=== PATIENT | female | born 1950 | race Caucasian/White ===

== ENCOUNTER 2018-05-13 15:05 | Inpatient (IN) ==
[2018-05-14] MEDS ORDERED: Mag Hydrox/Al Hydrox/Simeth 30 ML UDC PO PRN (21:11)
[2018-05-15] MEDS: *HR* Heparin 5,000 UNIT/ML VIAL SQ SCH ×2 (05:25→17:45)
[2018-05-15 05:36] LABS: Basophils % 0.3 %; Eosinophils # 0.1 K/mcL (0.0-0.6); Eosinophils % 1.2 %; Hematocrit 29.1 % (35.3-44.9); Hemoglobin 7.5 g/dL (11.5-15.4); Immature Granulocytes % 0.3 % (0-4); Lymphocytes # 1.3 K/mcL (0.6-4.6); Lymphocytes % 22.8 %; Mean Corpuscular HGB Conc 25.8 g/dL (31.6-35.5); Mean Corpuscular Hemoglobin 22.5 pg (28.0-33.3); Mean Corpuscular Volume 87.4 fL (83.0-100.0); Mean Platelet Volume 10.4 fL (9.4-12.4); Monocytes # 1.4 K/mcL (0.0-1.3); Monocytes % 24.2 %; Platelet Count 210 K/mcL (140-400); Red Blood Count 3.33 M/mcL (3.82-4.97); Red Cell Distribution Width 19.5 % (11.5-14.5); Segmented Neutrophils % 51.2 %
[2018-05-15 06:08] LABS: Anisocytosis 1+ (Not Present); Hypochromasia Present (Not Present); Microcytosis Present (Not Present); Platelet Estimate Normal (Normal)
[2018-05-15 06:22] LABS: Carbon Dioxide > 45 mEq/L (23-29)
[2018-05-15 06:24] LABS: Alanine Aminotransferase 21 Units/L (7-52); Albumin 3.7 g/dL (3.5-5.7); Albumin/Globulin Ratio 1.2 (1.1-2.2); Alkaline Phosphatase 61 Units/L (34-104); Aspartate Amino Transferase 21 Units/L (13-39); BUN/Creatinine Ratio 47 (6-26); Bilirubin,Total 0.8 mg/dL (0.3-1.0); Blood Urea Nitrogen 20 mg/dL (8-23); Calcium 9.4 mg/dL (8.6-10.3); Chloride 95 mEq/L (98-107); Globulin 3.1 g/dL (2.4-3.5); Glucose 104 mg/dL (70-105); Magnesium 2.1 mg/dL (1.6-2.6); Osmolality,Calculated 297 (280-300); Potassium 3.9 mEq/L (3.5-5.1); Total Protein 6.8 g/dL (6.4-8.9); eGFR For Non-African Americans > 60 (> 60)
[2018-05-15 06:28] LABS: Sodium 142 mEq/L (136-145)
[2018-05-15] MEDS: Psyllium 1 PACKET POWD.PACK PO SCH (09:16)
[2018-05-15] MEDS: Aspirin 81 MG TAB.CHEW PO SCH (09:16)
[2018-05-15] MEDS: Furosemide 40 MG TABLET PO SCH (09:17)
[2018-05-15] MEDS: Metoprolol XL (24 HR) Succ 25 MG TAB.ER.24H PO SCH (09:17)
--- NOTE | 2018-05-15 10:59 | Internal Med History&Physical ---
Addendum entered and electronically signed by Lopez Da Silva MD 05/15/18 12:46: I have personally performed a face to face evaluation on this patient. I have r eviewed and agree with the care plan. History and Exam by me shows: Patient had worsening CHF, went to another hospital and is now here for rehabilitation to gain strength. She denies sick: Specific weakness but states she is short of breath, weak "all over." She is apparently been compliant with CPAP. We discussed her anemia and she refuses transfusion or other therapy with exception of iron supplementation. She states that she has chronic iron deficiency this has not been diagnosed in terms of a source or reason why. Patient has no complaint of chest discomfort, dyspnea, orthopnea, breathing problems, palpitations, nausea or vomiting, constipation or diarrhea, other changes in bowel habits, heartburn, difficulty with urination, kidney problems or kidney stones, fevers chills or sweats, rash or itching, seizures, headache or lightheadedness, heat or cold intolerance, blood problems or anemia, or other new complaints, except as mentioned above. Review of systems is otherwise negative. Examination: (Except as mentioned above): General: In no apparent distress, alert and oriented 3. Head: Atraumatic and normocephalic. Eyes: Extraocular muscles are intact, pupils equal round and reactive to light and accommodation. Sclerae anicteric. Ears: External ears are normal to inspection and hearing is grossly normal. Nose: Patent without lesion noted. Mouth: No intraoral lesions seen. Dentition is unremarkable. Neck: Supple with trachea midline. There is no thyromegaly or adenopathy and carotids are 2+ without bruit heard. Respiratory: No use of accessory muscles. Lungs are clear throughout. Normal airflow. Cardiovascular: Irregularly irregular with rate controlled. Abdomen: Bowel sounds are normal. No hepatosplenomegaly masses or tenderness. Obese and therefore difficult to palpate deeply. Patient is examined upright in chair and this also limits exam. Extremities: No cyanosis clubbing, etc. However, she has 2+ edema which she states, "comes and goes." Neurological: A and O 3. Cranial nerves II through XII are intact. No focal deficits and no abnormal movements or postures. Skin: Warm and non-diaphoretic with no lesions noted. Breasts, pelvic and rectal: Not examined. We will check her iron studies and see about supplementation. We will watch her hemoglobin but for now, no transfusion per her wishes. She is in atrial fibrillation with chronic control. Will monitor heart rate and hope for optimized function. We will ask her to continue to use her BiPAP, as at home. Original Note: Date of Encounter: 05/15/18 Time of Encounter: 10:56 Assessment and Plan (1) Congestive heart failure Current visit: Yes Status: Chronic Patient was transferred to this facility for rehabilitation due to generalized weakness secondary to her CHF. Patient was recently admitted to [facility] course she was treated for exacerbation of CHF and cardiomyopathy. At time of admission patient's BNP was at 2084. Patient also showed slightly elevated troponins during her admission at [place]. Patient's most recent echocardiogram shows a EF of 35%. Patient currently appears relaxed and denies any dyspnea while at rest. Patient has been compliant with the use of BiPAP at night, which she uses at home. Lungs noted to have fine rales to posterior bases but otherwise are clear. Patient continues to have +2 pedal edema, which she states has been chronic. Patient states she continues to have dyspnea with minimal exertion. Patient estimates that she can walk approximately 15 feet before becoming short of breath. Patient endorses orthopnea. We will continue with daily weights. We will continue with current medications per cardiology. Physical therapy evaluation pending. Qualifiers: Heart failure type: combined systolic and diastolic Heart failure chronicity: acute on chronic Qualified Code(s): I50.43 - Acute on chronic combined systolic (congestive) and diastolic (congestive) heart failure (2) Coronary artery disease Current visit: Yes Status: Chronic No acute issues at this time. Patient did have elevated troponins during her previous admission and was evaluate by cardiology. Patient with chronic elevation in troponins, most likely secondary to adverse CHF exacerbation. Patient currently denies any palpitations or chest discomforts. We will continue on current management plan per cardiology. Qualifiers: Coronary Disease-Associated Artery/Lesion type: [place] artery [place] vs. transplanted heart: [place] heart Associated angina: without angina Qualified Code(s): I25.10 - Atherosclerotic heart disease of [place] coronary artery without angina pectoris (3) HTN (hypertension) Current visit: Yes Status: Chronic Vital signs are stable. We will continue with current medications. Qualifiers: Hypertension type: essential hypertension Qualified Code(s): I10 - Essential (primary) hypertension (4) Anemia Current visit: No Status: Chronic Patient with chronic anemia. This morning's hemoglobin showed a 7.5. Patient continues to have dyspnea on exertion. We will continue to evaluate patient's status for possible need of transfusion. We will repeat labs in the morning along with a anemia panel. Qualifiers: Anemia type: iron deficiency Iron deficiency anemia type: unspecified iron deficiency Qualified Code(s): D50.9 - Iron deficiency anemia, unspecified (5) Atrial fibrillation Current visit: Yes Status: Chronic No acute issues. Patient denies any chest discomforts or palpitations. Heart rate remains irregular with ventricular rate less than 100. Patient currently remains on heparin for anticoagulation coverage. Qualifiers: Atrial fibrillation type: paroxysmal Qualified Code(s): I48.0 - Paroxysmal atrial fibrillation Internal Medicine - H&P: HPI Chief complaint: CHF Admitted From: Hospital to Hospital Transfer Plans for Post Hospital Care: Home History of present illness: Ms. Chirinos is a 67 year old female, who was transferred to this facility for further rehabilitation due to generalized weakness secondary to her CHF. Patient was recently treated at [facility] for exacerbation of CHF. Patient was also diagnosed with cardiomyopathy per cardiology. Medical records show patient has had several admissions over the past year due to exacerbation of CHF. Patient currently states that she becomes dyspneic after ambulating only approximately 10-15 feet. Patient endorses orthopnea. Patient does state that she uses BiPAP at night as compliant with his use at home. Patient shows +2 pedal edema, which she states has been chronic. Patient denies any chest palpitations or discomforts. Patient with a history of CHF, cardiomyopathy, COPD, coronary artery disease, hypertension, DVT and atrial fibrillation Past Med Surg Social Fam HX - Past Medical History Medical history: arthritis, atrial fibrillation, CHF, COPD, DVT, GERD, hyperlipidemia, hypertension Additional medical history: endometriosis Psychiatric history: anxiety, depression - Past Surgical History Surgical History: herniorrhaphy, hysterectomy, orthopedic, other Additional surgical history: Tubal ligation. Shoulder sx. hernia repair x4 - Social History Smoking Status: Current every day smoker Packs per day: 1 Smokeless Tobacco Status: No Alcohol use: none Drug use: none - Family History Father Family Member Ethnicity: Non- Living Status: Hx Family Cardiac Disorders: Yes (CHF, [place], HTN) Hx Family Endocrine Disorder: Yes (DM) Mother Family Member Ethnicity: Non- Living Status: Hx Family Neurologic Disorders: Yes (Alzheimer's disease) Brother Family Member Ethnicity: Non- Living Status: Hx Family Cancer: Yes (pancreatic) Sister Family Member Ethnicity: Non- Living Status: Internal Medicine - H&P: Meds Albuterol Sulfate [Albuterol Inhaler] 2 puff IH Q4HR PRN #1 [email or web address] 03/25/18 [Rx] Aspirin 81 mg PO DAILY #30 tab.chew 03/25/18 [Rx] Atorvastatin [Lipitor] 10 mg PO DAILY #30 tablet 03/25/18 [Rx] Pantoprazole Sodium [Protonix] 40 mg PO DAILY #30 tablet.dr 03/25/18 [Rx] Psyllium Husk [Daily Fiber] 0.52 gm PO DAILY 05/03/18 [History] Citalopram Hydrobromide [Citalopram HBr] 20 mg PO DAILY 05/04/18 [History] Clopidogrel [Plavix] 75 mg PO DAILY 05/04/18 [History] Furosemide [Lasix] 40 mg PO DAILY 05/04/18 [History] Lisinopril 2.5 mg PO DAILY 05/04/18 [History] Metoprolol Succinate [Toprol Xl] 12.5 mg PO DAILY 05/04/18 [History] Docusate Sodium [Colace] 100 mg PO BID 05/14/18 [History] Ferrous Sulfate 325 mg PO DAILY@0800 30 Days #30 tablet 05/14/18 [Rx] Ipratropium/Albuterol Sulfate [Iprat-Albut 0.5-3(2.5) mg/3 ml] 3 ml IH QID PRN 05/14/18 [History] Allergy/AdvReac Type Severity Reaction Status Date / Time Neomycin Allergy Blister Verified 12/29/17 13:47 Penicillins Allergy Blister Verified 12/29/17 13:47 vancomycin Allergy Blister Verified 05/03/18 16:08 All Systems PM: A 10-system review of systems was performed and is negative for pertinent findings except as documented above in the HPI. - Constitutional Constitutional: no chills, no fever(s), no night sweats - EENT Eyes: as per HPI, no change in vision, no discharge, no pain, no photophobia Ears: no ear discharge, no ear pain, no tinnitus Nose, mouth and throat: as per HPI, no dysphagia, no nasal discharge, no neck pain, no sore throat - Cardiovascular Cardiovascular ROS IM: as per HPI, no chest pain, no diaphoresis, no dyspnea, no lightheadedness, no palpitations, no syncope - Respiratory Respiratory: as per HPI, no cough, no dyspnea, no wheezing, no excessive phlegm production - Gastrointestinal Gastrointestinal: as per HPI, no abdominal pain, no diarrhea, no hematemesis, no hematochezia, no melena, no nausea, no vomiting - Genitourinary Genitourinary: as per HPI, no change in urinary stream, no dysuria, no flank pain, no hematuria - Musculoskeletal Musculoskeletal ROS IM: as per HPI, no numbness, no tingling - Integumentary Integumentary IM: as per HPI, no rash, no unusual bruising - Neurological Neurological ROS: as per HPI, no confusion, no convulsions, no focal weakness, no numbness, no tingling, no tremor(s) - Hematologic/Lymphatic Hematologic/Lymphatic: no easy bruising - Constitutional Vitals: Temp Pulse Resp BP Pulse Ox 97.6 F 83 16 103/64 97 05/15/18 07:30 05/15/18 07:30 05/15/18 07:30 05/15/18 07:30 05/15/18 09:20 General appearance: Present: A&O X 3, pleasant - Head Head exam: Present: atraumatic, normocephalic - Eye Eye exam: Present: PERRL, conjuntiva pink, sclera anicteric Pupils: Present: PERRL - Neck Neck exam general surgery: Present: supple, trachea midline. Absent: lymphadenopathy - Respiratory Respiratory exam: Present: CTAB. Absent: accessory muscle use, rales, rhonchi, wheezes Additional comments: Lungs are clear throughout upper jain with noted findings scattered rales to posterior bases. Respiratory effort appears relaxed while at rest. No productive cough noted. - Cardiovascular Cardiovascular exam: Present: irregular rhythm, RRR, +S1, +S2. Absent: diastolic murmur, gallop, rubs, systolic murmur Additional comments: Patient's heart rate remains irregular with ventricular rate controlled less than 100 - GI/Abdominal GI/Abdominal exam: Present: normal bowel sounds, soft, no peritoneal signs. Absent: distended, tenderness - Extremities Exam Extremities exam: Present: pedal edema, warm, radial pulses palpable and symmetrical. Absent: calf tenderness, cyanotic Additional comments: Patient shows +2 pitting edema to bilateral lower extremities. - Neurological Exam Neurological exam: Present: CN II-XII intact, oriented X3, no focal deficits. Absent: pronater drift, facial droop, speech deficit - Skin Skin exam: Present: dry, intact Internal Med - H&P Results - Labs CBC & Chem 7: 05/15/18 04:10 05/15/18 04:10 Labs: Short CBC 05/15/18 Range/Units 04:10 WBC 5.8 (4.3-11.1) K/mcL Hgb 7.5 L (11.5-15.4) g/dL Hct 29.1 L (35.3-44.9) % Plt Count 210 (140-400) K/mcL Neutrophils # 3.0 (1.6-8.9) K/mcL BMP 05/15/18 04:10 Sodium 142 Potassium 3.9 Chloride 95 L Carbon Dioxide > 45 H* BUN 20 Creatinine 0.43 L Glucose 104 Calcium 9.4 Liver Function 05/15/18 Range/Units 04:10 Total Bilirubin 0.8 (0.3-1.0) mg/dL AST 21 (13-39) Units/L ALT 21 (7-52) Units/L Alkaline Phosphatase 61 (34-104) Units/L Albumin 3.7 (3.5-5.7) g/dL
[2018-05-15] MEDS: Acetaminophen 325 MG TABLET PO PRN (15:19)
[2018-05-16] MEDS: *HR* Heparin 5,000 UNIT/ML VIAL SQ SCH ×2 (05:48→19:30)
[2018-05-16 07:40] LABS: Basophils % 0.4 %; Eosinophils # 0.1 K/mcL (0.0-0.6); Eosinophils % 1.7 %; Hematocrit 29.4 % (35.3-44.9); Hemoglobin 7.8 g/dL (11.5-15.4); Immature Granulocytes % 0.2 % (0-4); Lymphocytes # 0.9 K/mcL (0.6-4.6); Lymphocytes % 16.9 %; Mean Corpuscular HGB Conc 26.5 g/dL (31.6-35.5); Mean Corpuscular Hemoglobin 23.1 pg (28.0-33.3); Mean Platelet Volume 10.2 fL (9.4-12.4); Monocytes # 1.2 K/mcL (0.0-1.3); Monocytes % 21.3 %; Neutrophils # 3.2 K/mcL (1.6-8.9); Platelet Count 220 K/mcL (140-400); Red Blood Count 3.38 M/mcL (3.82-4.97); Red Cell Distribution Width 20.2 % (11.5-14.5); Segmented Neutrophils % 59.5 %
[2018-05-16] MEDS: Metoprolol XL (24 HR) Succ 25 MG TAB.ER.24H PO SCH (07:55)
[2018-05-16] MEDS: Aspirin 81 MG TAB.CHEW PO SCH (08:05)
[2018-05-16] MEDS: Psyllium 1 PACKET POWD.PACK PO SCH (08:06)
[2018-05-16] MEDS: Furosemide 40 MG TABLET PO SCH (08:06)
[2018-05-16 13:10] LABS: % Iron Saturation 9 % (15-50); Iron 32 mcg/dL (50-170); Transferrin 262 mg/dL (203-362)
--- NOTE | 2018-05-16 13:28 | Internal Med Progress Note ---
Date of Encounter: 05/16/18 Time of Encounter: 13:26 - Assessment and plan (1) Congestive heart failure Current Visit: Yes Status: Chronic Assessment and plan: Clinically stable. We will continue to follow. Qualifiers: Heart failure type: combined systolic and diastolic Heart failure chronicity: acute on chronic Qualified Code(s): I50.43 - Acute on chronic combined systolic (congestive) and diastolic (congestive) heart failure (2) Coronary artery disease Current Visit: Yes Status: Chronic Assessment and plan: Currently, no signs or symptoms. Qualifiers: Coronary Disease-Associated Artery/Lesion type: [place] artery [place] vs. transplanted heart: [place] heart Associated angina: without angina Qualified Code(s): I25.10 - Atherosclerotic heart disease of [place] coronary artery without angina pectoris (3) COPD (chronic obstructive pulmonary disease) Current Visit: No Status: Chronic Assessment and plan: Clinically stable, on oxygen and supportive therapy. Qualifiers: COPD type: COPD with acute exacerbation Qualified Code(s): J44.1 - Chronic obstructive pulmonary disease with (acute) exacerbation (4) GERD (gastroesophageal reflux disease) Current Visit: No Status: Chronic Assessment and plan: Clinically stable on current regimen. Qualifiers: Esophagitis presence: esophagitis presence not specified Qualified Code(s): K21.9 - Gastro-esophageal reflux disease without esophagitis (5) Symptomatic anemia Current Visit: No Status: Acute Assessment and plan: Vitals are stable and patient refuses transfusion, as before. (6) HLD (hyperlipidemia) Current Visit: No Status: Chronic Assessment and plan: We will continue current regimen. Qualifiers: Hyperlipidemia type: unspecified Qualified Code(s): E78.5 - Hyperlipidemia, unspecified (7) HTN (hypertension) Current Visit: Yes Status: Chronic Assessment and plan: Clinically controlled. Qualifiers: Hypertension type: essential hypertension Qualified Code(s): I10 - Essential (primary) hypertension - Subjective Interval history: Patient is not as tired as yesterday and feels that her breathing is unchanged. She has no other acute issues. She moved her bowels earlier today. Patient has no complaint of chest discomfort, dyspnea, orthopnea, palpitations, nausea or vomiting, constipation or diarrhea, other changes in bowel habits, difficulty with urination, rash or itching, or other new complaints, except as mentioned above. Review of systems is otherwise negative. I discussed management of her care with nursing staff. - Constitutional Vitals: Temp Pulse Resp BP Pulse Ox 98.2 F 72 18 109/49 96 05/16/18 07:22 05/16/18 07:22 05/15/18 20:42 05/16/18 07:22 05/16/18 07:22 Exam: Examination: (Except as mentioned above): General: In no apparent distress. Alert and oriented 3. Nondiaphoretic. She is wearing oxygen at 2 L per nasal cannula. Head: Atraumatic and normocephalic. Respiratory: No use of accessory muscles. Lungs are clear throughout. Normal airflow. Cardiovascular: Regular rate and rhythm without murmur appreciated. Abdomen: Bowel sounds are normal. No hepatosplenomegaly mass or tenderness appreciated. Obese and therefore difficult to palpate deeply. Patient is exa mined upright in chair and this also limits exam. Extremities: No cyanosis clubbing or edema. Skin: Warm and non-diaphoretic with no new lesions noted. Internal Medicine: Result - Labs CBC & Chem 7: 05/16/18 07:20 05/15/18 04:10 Labs: Short CBC 05/16/18 Range/Units 07:20 WBC 5.4 (4.3-11.1) K/mcL Hgb 7.8 L (11.5-15.4) g/dL Hct 29.4 L (35.3-44.9) % Plt Count 220 (140-400) K/mcL Neutrophils # 3.2 (1.6-8.9) K/mcL Consult Discharge Plan - Plan Referrals: Jean Paul Heredia Jr, MD [Primary Care Provider] -
[2018-05-16] MEDS: Melatonin 3 MG TABLET PO PRN (22:31)
[2018-05-17] MEDS: *HR* Heparin 5,000 UNIT/ML VIAL SQ SCH ×2 (06:24→18:35)
[2018-05-17] MEDS: Aspirin 81 MG TAB.CHEW PO SCH (08:47)
[2018-05-17] MEDS: Furosemide 40 MG TABLET PO SCH (08:47)
[2018-05-17] MEDS: Metoprolol XL (24 HR) Succ 25 MG TAB.ER.24H PO SCH (08:48)
--- NOTE | 2018-05-17 17:32 | Internal Med Progress Note ---
Date of Encounter: 05/17/18 Time of Encounter: 15:10 - Assessment and plan (1) Congestive heart failure Current Visit: Yes Status: Chronic Assessment and plan: Clinically stable. No acute signs or symptoms but she does have persistent edema. Qualifiers: Heart failure type: combined systolic and diastolic Heart failure chronicity: acute on chronic Qualified Code(s): I50.43 - Acute on chronic combined systolic (congestive) and diastolic (congestive) heart failure (2) Coronary artery disease Current Visit: Yes Status: Chronic Assessment and plan: Clinically stable without acute signs or symptoms. Qualifiers: Coronary Disease-Associated Artery/Lesion type: [place] artery [place] vs. transplanted heart: [place] heart Associated angina: without angina Qualified Code(s): I25.10 - Atherosclerotic heart disease of [place] coronary artery without angina pectoris (3) COPD (chronic obstructive pulmonary disease) Current Visit: No Status: Chronic Assessment and plan: Clinically stable, on oxygen therapy. Qualifiers: COPD type: COPD with acute exacerbation Qualified Code(s): J44.1 - Chronic obstructive pulmonary disease with (acute) exacerbation (4) GERD (gastroesophageal reflux disease) Current Visit: No Status: Chronic Assessment and plan: No symptoms. Qualifiers: Esophagitis presence: esophagitis presence not specified Qualified Code(s): K21.9 - Gastro-esophageal reflux disease without esophagitis (5) Symptomatic anemia Current Visit: No Status: Acute Assessment and plan: Patient's iron is low. We will investigate IV iron infusion, tomorrow. (6) HLD (hyperlipidemia) Current Visit: No Status: Chronic Assessment and plan: We will continue current regimen. Qualifiers: Hyperlipidemia type: unspecified Qualified Code(s): E78.5 - Hyperlipidemia, unspecified (7) HTN (hypertension) Current Visit: Yes Status: Chronic Assessment and plan: Clinically controlled but will follow. Qualifiers: Hypertension type: essential hypertension Qualified Code(s): I10 - Essential (primary) hypertension - Subjective Interval history: Patient is feeling well today and has no complaints. She is moving her bowels without problem. She denies other complication. Patient has no complaint of chest discomfort, dyspnea, orthopnea, palpitations, nausea or vomiting, constipation or diarrhea, other changes in bowel habits, difficulty with urination, rash or itching, or other new complaints, except as mentioned above. Review of systems is otherwise negative. I discussed management of her care with nursing staff. - Constitutional Vitals: Temp Pulse Resp BP Pulse Ox 98.0 F 87 14 123/76 98 05/17/18 07:36 05/17/18 07:36 05/17/18 07:36 05/17/18 07:36 05/17/18 07:36 Exam: Examination: (Except as mentioned above): General: In no apparent distress. Alert and oriented 3. Nondiaphoretic. Head: Atraumatic and normocephalic. Respiratory: No use of accessory muscles. Lungs are clear throughout. Normal airflow. Cardiovascular: Regular rate and rhythm without murmur appreciated. Abdomen: Bowel sounds are normal. No hepatosplenomegaly mass or tenderness appreciated. Obese and therefore difficult to palpate deeply. Patient is examined upright in chair and this also limits exam. Extremities: No cyanosis clubbing or change in edema. This means that she still has bilateral 2+ ankle edema. Skin: Warm and non-diaphoretic with no new lesions noted. Internal Medicine: Result - Labs CBC & Chem 7: 05/16/18 07:20 05/15/18 04:10 Consult Discharge Plan - Plan Referrals: Jean Paul Heredia Jr, MD [Primary Care Provider] -
[2018-05-17] MEDS: Psyllium 1 PACKET POWD.PACK PO SCH (18:30)
[2018-05-17] MEDS: Ipratropium/Albuterol Neb 3 ML IH PRN (20:48)
[2018-05-18] MEDS: *HR* Heparin 5,000 UNIT/ML VIAL SQ SCH ×2 (06:17→18:29)
[2018-05-18] MEDS: Aspirin 81 MG TAB.CHEW PO SCH (07:26)
[2018-05-18] MEDS: Furosemide 40 MG TABLET PO SCH (07:26)
[2018-05-18] MEDS: Metoprolol XL (24 HR) Succ 25 MG TAB.ER.24H PO SCH (07:27)
[2018-05-18] MEDS: Psyllium 1 PACKET POWD.PACK PO SCH (07:30)
[2018-05-18] MEDS ORDERED: Psyllium 1 PACKET POWD.PACK PO PRN (10:32)
--- NOTE | 2018-05-18 11:06 | Internal Med Progress Note ---
Addendum entered and electronically signed by Lopez Da Silva MD 05/18/18 14:34: I have personally performed a face to face evaluation on this patient. I have r eviewed and agree with the care plan. History and Exam by me shows: Patient was noted to desaturate during therapy, 5 physical therapy. She is otherwise doing okay. She states that her breathing is no change and she is less fatigued than before. She denies acute issues. Discussed care with other providers and/or nursing. Patient has no complaint of chest discomfort, dyspnea, orthopnea, palpitations, nausea or vomiting, constipation or diarrhea, other changes in bowel habits, difficulty with urination, rash or itching, or other new complaints, except as mentioned above. Review of systems is otherwise negative. Examination: (Except as mentioned above): General: In no apparent distress. Alert and oriented 3. Nondiaphoretic. Head: Atraumatic and normocephalic. Respiratory: No use of accessory muscles. Lungs are clear throughout. Normal airflow. Cardiovascular: Regular rate and rhythm without murmur appreciated. Abdomen: Bowel sounds are normal. No hepatosplenomegaly mass or tenderness appreciated. Obese and therefore difficult to palpate deeply. Patient is examined upright in chair and this also limits exam. Extremities: No cyanosis clubbing or change in edema. This means she has bilateral 2+ lower calf and ankle edema. Skin: Warm and non-diaphoretic with no new lesions noted. Original Note: Date of Encounter: 05/18/18 Time of Encounter: 11:05 - Subjective Interval history: Sitting in chair, denies increased shortness of breath or chest pain. Denies nausea, vomiting or diarrhea. States she is having loose bowel movements. Will make MiraLAX PRN. Denies any other complaints at this time. Wears BiPAP at bedtime. - Constitutional Vitals: Temp Pulse Resp BP Pulse Ox 98.0 F 84 15 100/49 95 05/18/18 09:15 05/18/18 09:15 05/18/18 09:15 05/18/18 09:15 05/18/18 09:15 General appearance: Present: A&O X 3, pleasant, no acute distress, answers questions appropriately - Head Head exam: Present: atraumatic, normocephalic - Eye Eye exam: Present: PERRL, conjuntiva pink, sclera anicteric Pupils: Present: PERRL - Neck Neck exam general surgery: Present: supple, trachea midline. Absent: lymphadenopathy - Respiratory Respiratory exam: Present: CTAB. Absent: accessory muscle use, rales, rhonchi, wheezes Additional comments: Diminished and bilateral basis - Cardiovascular Cardiovascular exam: Present: irregular rhythm, +S1, +S2. Absent: diastolic murmur, gallop, rubs, systolic murmur - GI/Abdominal GI/Abdominal exam: Present: normal bowel sounds, soft, no peritoneal signs. Absent: distended, tenderness - Extremities Exam Extremities exam: Present: pedal edema, warm, radial pulses palpable and symmetrical. Absent: calf tenderness, cyanotic Additional comments: Trace nonpitting pedal edema. - Neurological Exam Neurological exam: Present: CN II-XII intact, oriented X3, no focal deficits. Absent: pronater drift, facial droop, speech deficit - Skin Skin exam: Present: dry, intact Internal Medicine: Result - Labs CBC & Chem 7: 05/16/18 07:20 05/15/18 04:10 Consult Discharge Plan - Plan Referrals: Jean Paul Heredia Jr, MD [Primary Care Provider] -
[2018-05-18 16:20] LABS: Basophils % 0.3 %; Eosinophils # 0.1 K/mcL (0.0-0.6); Eosinophils % 1.3 %; Immature Granulocytes % 0.6 % (0-4); Lymphocytes # 1.3 K/mcL (0.6-4.6); Lymphocytes % 17.8 %; Mean Corpuscular HGB Conc 26.7 g/dL (31.6-35.5); Mean Corpuscular Hemoglobin 23.5 pg (28.0-33.3); Mean Platelet Volume 10.5 fL (9.4-12.4); Monocytes # 1.2 K/mcL (0.0-1.3); Monocytes % 17.1 %; Neutrophils # 4.4 K/mcL (1.6-8.9); Platelet Count 271 K/mcL (140-400); Red Blood Count 3.41 M/mcL (3.82-4.97); Red Cell Distribution Width 21.9 % (11.5-14.5); Segmented Neutrophils % 62.9 %
[2018-05-18 16:46] LABS: Alanine Aminotransferase 23 Units/L (7-52); Albumin 3.8 g/dL (3.5-5.7); Albumin/Globulin Ratio 1.2 (1.1-2.2); Alkaline Phosphatase 82 Units/L (34-104); Aspartate Amino Transferase 22 Units/L (13-39); BUN/Creatinine Ratio 33 (6-26); Bilirubin,Total 0.6 mg/dL (0.3-1.0); Blood Urea Nitrogen 15 mg/dL (8-23); Calcium 9.1 mg/dL (8.6-10.3); Carbon Dioxide 41 mEq/L (23-29); Chloride 98 mEq/L (98-107); Globulin 3.1 g/dL (2.4-3.5); Glucose 103 mg/dL (70-105); Magnesium 1.9 mg/dL (1.6-2.6); Osmolality,Calculated 297 (280-300); Potassium 4.3 mEq/L (3.5-5.1); Sodium 143 mEq/L (136-145); Total Protein 6.9 g/dL (6.4-8.9); eGFR For Non-African Americans > 60 (> 60)
[2018-05-19] MEDS: *HR* Heparin 5,000 UNIT/ML VIAL SQ SCH ×2 (06:23→18:25)
--- NOTE | 2018-05-19 08:21 | Internal Med Progress Note ---
Addendum entered and electronically signed by Lopez Da Silva MD 05/19/18 14:07: I have personally performed a face to face evaluation on this patient. I have r eviewed and agree with the care plan. History and Exam by me shows: Patient is still fatigued but not any different than she has been for several days. Her breathing is limited by activity but is generally not changed. He has had no problems or other complaints. We discussed her Lasix dose and agreed to follow. She apparently has cardiology follow-up in about a week and half. Discussed care with other providers and/or nursing. Patient has no complaint of chest discomfort, dyspnea, orthopnea, palpitations, nausea or vomiting, constipation or diarrhea, other changes in bowel habits, difficulty with urination, rash or itching, or other new complaints, except as mentioned above. Review of systems is otherwise negative. Examination: (Except as mentioned above): General: In no apparent distress. Alert and oriented 3. Nondiaphoretic. Head: Atraumatic and normocephalic. Respiratory: No use of accessory muscles. Lungs are clear throughout. Normal airflow. Cardiovascular: Regular rate and rhythm without murmur appreciated. Abdomen: Bowel sounds are normal. No hepatosplenomegaly mass or tenderness appreciated. Obese and therefore difficult to palpate deeply. Patient is examined upright in chair and this also limits exam. Extremities: No cyanosis clubbing or change in edema. No cord or calf tenderness. Skin: Warm and non-diaphoretic with no new lesions noted. Original Note: Date of Encounter: 05/19/18 Time of Encounter: 08:17 - Assessment and plan (1) Congestive heart failure Current Visit: Yes Status: Chronic Assessment and plan: Controlled with current medication. Monitor for decompensation. Monitor labs. Qualifiers: Heart failure type: combined systolic and diastolic Heart failure chronicity: acute on chronic Qualified Code(s): I50.43 - Acute on chronic combined systolic (congestive) and diastolic (congestive) heart failure (2) Coronary artery disease Current Visit: Yes Status: Chronic Assessment and plan: Stable. Denies chest pain. Continue current medication. Qualifiers: Coronary Disease-Associated Artery/Lesion type: [place] artery [place] vs. transplanted heart: [place] heart Associated angina: without angina Qualified Code(s): I25.10 - Atherosclerotic heart disease of [place] coronary artery without angina pectoris (3) HTN (hypertension) Current Visit: Yes Status: Chronic Assessment and plan: Controlled with current medication. Monitor blood pressure. Qualifiers: Hypertension type: essential hypertension Qualified Code(s): I10 - Essential (primary) hypertension (4) COPD (chronic obstructive pulmonary disease) Current Visit: Yes Status: Chronic Assessment and plan: Continue oxygen per nasal cannula. Maintaining sets greater than 92% at 2 L per nasal cannula. Continue inhaled meds. Stable at this time. BiPAP at bedtime. Qualifiers: COPD type: COPD with acute exacerbation Qualified Code(s): J44.1 - Chronic obstructive pulmonary disease with (acute) exacerbation (5) Anemia Current Visit: Yes Status: Chronic Assessment and plan: Slightly improving hemoglobin 8.0. Monitor. Qualifiers: Anemia type: iron deficiency Iron deficiency anemia type: unspecified iron deficiency Qualified Code(s): D50.9 - Iron deficiency anemia, unspecified - Time Spent With Patient less than 15 minutes - Subjective Interval history: Sitting in chair, denies increased shortness of breath or chest pain. Denies nausea, vomiting or diarrhea. Denies any other complaints at this time. Wears BiPAP at bedtime. maintaining o2 sats >92% at 2 liters per NC - Constitutional Vitals: Temp Pulse Resp BP Pulse Ox 97.9 F 73 16 99/49 93 05/19/18 07:30 05/19/18 07:30 05/19/18 07:30 05/19/18 07:30 05/19/18 07:30 General appearance: Present: A&O X 3, pleasant, no acute distress, answers questions appropriately - Head Head exam: Present: atraumatic, normocephalic - Eye Eye exam: Present: PERRL, conjuntiva pink, sclera anicteric Pupils: Present: PERRL - Neck Neck exam general surgery: Present: supple, trachea midline. Absent: lymphadenopathy - Respiratory Respiratory exam: Present: CTAB. Absent: accessory muscle use, rales, rhonchi, wheezes Additional comments: diminished bilat bases. - Cardiovascular Cardiovascular exam: Present: RRR, +S1, +S2. Absent: diastolic murmur, gallop, rubs, systolic murmur - GI/Abdominal GI/Abdominal exam: Present: normal bowel sounds, soft, no peritoneal signs. Absent: distended, tenderness - Extremities Exam Extremities exam: Present: pedal edema, warm, radial pulses palpable and symmetrical. Absent: calf tenderness, cyanotic Additional comments: trace nonpitting bilat LE edema - Neurological Exam Neurological exam: Present: CN II-XII intact, oriented X3, no focal deficits. Absent: pronater drift, facial droop, speech deficit - Skin Skin exam: Present: dry, intact Internal Medicine: Result - Labs CBC & Chem 7: 05/18/18 16:06 05/18/18 16:06 Labs: Short CBC 05/18/18 Range/Units 16:06 WBC 7.0 (4.3-11.1) K/mcL Hgb 8.0 L (11.5-15.4) g/dL Hct 30.0 L (35.3-44.9) % Plt Count 271 (140-400) K/mcL Neutrophils # 4.4 (1.6-8.9) K/mcL BMP 05/18/18 16:06 Sodium 143 Potassium 4.3 Chloride 98 Carbon Dioxide 41 H* BUN 15 Creatinine 0.46 L Glucose 103 Calcium 9.1 Liver Function 05/18/18 Range/Units 16:06 Total Bilirubin 0.6 (0.3-1.0) mg/dL AST 22 (13-39) Units/L ALT 23 (7-52) Units/L Alkaline Phosphatase 82 (34-104) Units/L Albumin 3.8 (3.5-5.7) g/dL Consult Discharge Plan - Plan Referrals: Jean Paul Heredia Jr, MD [Primary Care Provider] -
[2018-05-19] MEDS: Metoprolol XL (24 HR) Succ 25 MG TAB.ER.24H PO SCH (08:38)
[2018-05-19] MEDS: Aspirin 81 MG TAB.CHEW PO SCH (08:44)
[2018-05-19] MEDS: Furosemide 40 MG TABLET PO SCH (08:45)
[2018-05-19] MEDS: Acetaminophen 325 MG TABLET PO PRN (11:42)
[2018-05-19] MEDS: Ipratropium/Albuterol Neb 3 ML IH PRN (19:19)
[2018-05-20] MEDS: Acetaminophen 325 MG TABLET PO PRN (01:10)
[2018-05-20] MEDS: *HR* Heparin 5,000 UNIT/ML VIAL SQ SCH ×2 (05:06→18:25)
[2018-05-20] MEDS: Furosemide 40 MG TABLET PO SCH (09:07)
[2018-05-20] MEDS: Metoprolol XL (24 HR) Succ 25 MG TAB.ER.24H PO SCH (09:07)
[2018-05-20] MEDS: Aspirin 81 MG TAB.CHEW PO SCH (09:10)
--- NOTE | 2018-05-20 09:41 | Internal Med Progress Note ---
Addendum entered and electronically signed by Lopez Da Silva MD 05/20/18 14:28: I have personally performed a face to face evaluation on this patient. I have r eviewed and agree with the care plan. History and Exam by me shows: Patient feels about the same. She states that her breathing is about the same. She feels like she is improving in terms of strength with therapy but not ready to go home yet. Bowels are moving well without diarrhea or constipation. Discussed care with other providers and/or nursing. Patient has no complaint of chest discomfort, dyspnea, orthopnea, palpitations, nausea or vomiting, constipation or diarrhea, other changes in bowel habits, difficulty with urination, rash or itching, or other new complaints, except as mentioned above. Review of systems is otherwise negative. Examination: (Except as mentioned above): General: In no apparent distress. Alert and oriented 3. Nondiaphoretic. Head: Atraumatic and normocephalic. Respiratory: No use of accessory muscles. Lungs are clear throughout. Normal airflow. Cardiovascular: Regular rate and rhythm without murmur appreciated. Abdomen: Bowel sounds are normal. No hepatosplenomegaly mass or tenderness appreciated. Morbidly obese and therefore difficult to palpate deeply. Extremities: No cyanosis clubbing or change in edema. This means that she has 2 + bilateral ankle edema without cord or calf tenderness. Skin: Warm and non-diaphoretic with no new lesions noted. Original Note: Date of Encounter: 05/20/18 Time of Encounter: 09:39 - Assessment and plan (1) Congestive heart failure Current Visit: Yes Status: Chronic Assessment and plan: No acute issues. Patient continues with diminished breath sounds to lower jain. Continued dyspnea with minimal exertion and orthopnea. We will continue with BiPAP at night. Patient noted to be slightly increased and her daily weights to 74 kg from 68. We will review patient's current medications. Qualifiers: Heart failure type: combined systolic and diastolic Heart failure chronicity: acute on chronic Qualified Code(s): I50.43 - Acute on chronic combined systolic (congestive) and diastolic (congestive) heart failure (2) Coronary artery disease Current Visit: Yes Status: Chronic Assessment and plan: No acute issues. Patient denies any chest palpitations or discomforts. We will continue with current medications. Qualifiers: Coronary Disease-Associated Artery/Lesion type: [place] artery [place] vs. transplanted heart: [place] heart Associated angina: without angina Qualified Code(s): I25.10 - Atherosclerotic heart disease of [place] coronary artery without angina pectoris (3) HTN (hypertension) Current Visit: Yes Status: Chronic Assessment and plan: Vital signs have remained stable, although her systolic has been somewhat low at 95-105. We will continue with current medications. Qualifiers: Hypertension type: essential hypertension Qualified Code(s): I10 - Essential (primary) hypertension (4) Anemia Current Visit: Yes Status: Chronic Assessment and plan: Patient continues with anemia although her hemoglobin has increased somewhat to 8.0. No current signs of active bleeding. We will continue to monitor with serial labs. Qualifiers: Anemia type: iron deficiency Iron deficiency anemia type: unspecified iron deficiency Qualified Code(s): D50.9 - Iron deficiency anemia, unspecified (5) Atrial fibrillation Current Visit: Yes Status: Chronic Assessment and plan: No acute issues. Patient's heart rate remains well controlled less than 100. Patient denies any chest palpitations or discomforts. We will continue with current medications. Qualifiers: Atrial fibrillation type: paroxysmal Qualified Code(s): I48.0 - Paroxysmal atrial fibrillation - Time Spent With Patient less than 15 minutes - Subjective Interval history: No acute issues. Patient currently denies any dyspnea or discomforts. Denies any productive cough or chest palpitations. Therapy reports patient continues become winded during exertion. Patient endorses orthopnea. Continued use of BiPAP at night. - Constitutional Vitals: Temp Pulse Resp BP Pulse Ox 97.8 F 89 18 93/62 95 05/20/18 06:38 05/20/18 06:38 05/20/18 06:38 05/20/18 06:38 05/20/18 09:11 General appearance: Present: A&O X 3, pleasant, no acute distress, answers questions appropriately - Head Head exam: Present: atraumatic, normocephalic - Eye Eye exam: Present: PERRL, conjuntiva pink, sclera anicteric Pupils: Present: PERRL - Neck Neck exam general surgery: Present: supple, trachea midline. Absent: lymphadenopathy - Respiratory Respiratory exam: Present: CTAB. Absent: accessory muscle use, rales, rhonchi, wheezes Additional comments: Lungs are clear throughout upper jain but diminished to lower half. Patient is obese with distant breath sounds to lower lung jain. No productive cough noted. Respiratory effort appears relaxed while at rest. - Cardiovascular Cardiovascular exam: Present: RRR, +S1, +S2. Absent: diastolic murmur, gallop, rubs, systolic murmur - GI/Abdominal GI/Abdominal exam: Present: normal bowel sounds, soft, no peritoneal signs. Absent: distended, tenderness - Extremities Exam Extremities exam: Present: pedal edema, warm, radial pulses palpable and symmetrical. Absent: calf tenderness, cyanotic Additional comments: Patient continues with +1 edema to bilateral lower legs. - Neurological Exam Neurological exam: Present: CN II-XII intact, oriented X3, no focal deficits. Absent: pronater drift, facial droop, speech deficit - Skin Skin exam: Present: dry, intact Internal Medicine: Result - Labs CBC & Chem 7: 05/18/18 16:06 05/18/18 16:06 Consult Discharge Plan - Plan Referrals: Jean Paul Heredia Jr, MD [Primary Care Provider] -
[2018-05-20] MEDS: Ipratropium/Albuterol Neb 3 ML IH PRN (19:54)
[2018-05-21] MEDS: *HR* Heparin 5,000 UNIT/ML VIAL SQ SCH ×2 (04:12→18:12)
[2018-05-21] MEDS: Ipratropium/Albuterol Neb 3 ML IH PRN ×2 (04:17→20:30)
[2018-05-21] MEDS: Metoprolol XL (24 HR) Succ 25 MG TAB.ER.24H PO SCH (08:46)
[2018-05-21] MEDS: Furosemide 40 MG TABLET PO SCH (08:46)
[2018-05-21] MEDS: Aspirin 81 MG TAB.CHEW PO SCH (08:47)
--- NOTE | 2018-05-21 10:32 | Internal Med Progress Note ---
Addendum entered and electronically signed by Lopez Da Silva MD 05/21/18 12:21: It should be noted that the patient was in atrial fibrillation as indicated by her irregularly irregular heartbeat with rate controlled. No murmur gallop or rub is heard. Addendum entered and electronically signed by Lopez Da Silva MD 05/21/18 12:17: I have personally performed a face to face evaluation on this patient. I have reviewed and agree with the care plan. History and Exam by me shows: Patient is without acute complaint. She did complain earlier of not putting him sleep. She did not use melatonin and has not been using it. She has had this prescribed since her arrival here. Nursing and I reinforced that she needed to use this on a regular basis and we would increase the dose of not effective for consider another medication. Bowels and bladder been functioning well and she denies change. She has not noticed any change in her breathing and states that his "as usual." She also has no increase in edema that she has noticed. Nursing had questioned whether her edema was increased. Discussed care with other providers and/or nursing. Patient has no complaint of chest discomfort, dyspnea, orthopnea, palpitations, nausea or vomiting, constipation or diarrhea, other changes in bowel habits, difficulty with urination, rash or itching, or other new complaints, except as mentioned above. Review of systems is otherwise negative. Examination: (Except as mentioned above): General: In no apparent distress. Alert and oriented 3. Nondiaphoretic. Head: Atraumatic and normocephalic. Respiratory: No use of accessory muscles. Lungs are clear throughout. Normal airflow. Cardiovascular: Regular rate and rhythm without murmur appreciated. Abdomen: Bowel sounds are normal. No hepatosplenomegaly mass or tenderness appreciated. Morbidly obese and therefore difficult to palpate deeply. Extremities: No cyanosis clubbing or change in edema. She still has 2+ bilateral lower calf and ankle and foot edema but this is the same as before. Skin: Warm and non-diaphoretic with no new lesions noted. Original Note: Date of Encounter: 05/21/18 Time of Encounter: 10:30 - Assessment and plan (1) Congestive heart failure Current Visit: Yes Status: Chronic Assessment and plan: No acute issues. Patient continues with diminished breath sounds to lower jain. Continued dyspnea with minimal exertion and orthopnea. We will continue with BiPAP at night. We will review patient's current medications. Qualifiers: Heart failure type: combined systolic and diastolic Heart failure chronicity: acute on chronic Qualified Code(s): I50.43 - Acute on chronic combined systolic (congestive) and diastolic (congestive) heart failure (2) Coronary artery disease Current Visit: Yes Status: Chronic Assessment and plan: No acute issues. Patient denies any chest palpitations or discomforts. We will continue with current medications. Qualifiers: Coronary Disease-Associated Artery/Lesion type: [place] artery [place] vs. transplanted heart: [place] heart Associated angina: without angina Qualified Code(s): I25.10 - Atherosclerotic heart disease of [place] coronary artery without angina pectoris (3) HTN (hypertension) Current Visit: Yes Status: Chronic Assessment and plan: Vital signs have remained stable, although her systolic has been somewhat low at 95-105. We will continue with current medications. Qualifiers: Hypertension type: essential hypertension Qualified Code(s): I10 - Essential (primary) hypertension (4) Anemia Current Visit: Yes Status: Chronic Assessment and plan: Patient continues with anemia although her hemoglobin with last level at 8.0. No current signs of active bleeding. We will continue to monitor with serial labs. Qualifiers: Anemia type: iron deficiency Iron deficiency anemia type: unspecified iron deficiency Qualified Code(s): D50.9 - Iron deficiency anemia, unspecified (5) Atrial fibrillation Current Visit: Yes Status: Chronic Assessment and plan: No acute issues. Patient's heart rate remains well controlled less than 100. Patient denies any chest palpitations or discomforts. We will continue with current medications. Qualifiers: Atrial fibrillation type: paroxysmal Qualified Code(s): I48.0 - Paroxysmal atrial fibrillation - Time Spent With Patient less than 15 minutes - Subjective Interval history: Patient with complaints of difficulty sleeping at night. Patient states that she has not been able to fall asleep or maintaining sleep over the past 2-3 nights.. Patient currently denies any dyspnea or discomforts. Denies any productive cough or chest palpitations. Therapy reports patient continues become winded during exertion. Patient endorses orthopnea. Continued use of BiPAP at night. - Constitutional Vitals: Temp Pulse Resp BP Pulse Ox 97.4 F L 95 16 103/64 97 05/21/18 07:11 05/21/18 07:11 05/21/18 07:11 05/21/18 07:11 05/21/18 07:11 General appearance: Present: A&O X 3, pleasant, no acute distress, answers questions appropriately - Head Head exam: Present: atraumatic, normocephalic - Eye Eye exam: Present: PERRL, conjuntiva pink, sclera anicteric Pupils: Present: PERRL - Neck Neck exam general surgery: Present: supple, trachea midline. Absent: lymphadenopathy - Respiratory Respiratory exam: Present: CTAB. Absent: accessory muscle use, rales, rhonchi, wheezes Additional comments: Lungs are clear throughout upper jain and diminished breath sounds throughout lower half. No productive cough noted. Respiratory effort appears relaxed. - Cardiovascular Cardiovascular exam: Present: irregular rhythm, RRR, +S1, +S2. Absent: diastolic murmur, gallop, rubs, systolic murmur Additional comments: Heart rate remains irregular but controlled ventricular rate less than 100 bpm - GI/Abdominal GI/Abdominal exam: Present: normal bowel sounds, soft, no peritoneal signs. Absent: distended, tenderness - Extremities Exam Extremities exam: Present: pedal edema, warm, radial pulses palpable and symmetrical. Absent: calf tenderness, cyanotic Additional comments: +1 pedal edema to bilateral lower legs - Neurological Exam Neurological exam: Present: CN II-XII intact, oriented X3, no focal deficits. Absent: pronater drift, facial droop, speech deficit - Skin Skin exam: Present: dry, intact Internal Medicine: Result - Labs CBC & Chem 7: 05/18/18 16:06 05/18/18 16:06 Consult Discharge Plan - Plan Referrals: Jean Paul Heredia Jr, MD [Primary Care Provider] -
[2018-05-21] MEDS ORDERED: Melatonin 3 MG TABLET PO PRN (10:54)
[2018-05-21] MEDS ORDERED: Neosporin OINT 15 GM TUBE TP SCH (22:45)
[2018-05-21] MEDS: Melatonin 3 MG TABLET PO PRN (23:19)
[2018-05-22] MEDS: Neosporin OINT 1 APPL PACKET TP SCH ×3 (04:56→19:27)
[2018-05-22] MEDS: *HR* Heparin 5,000 UNIT/ML VIAL SQ SCH ×2 (04:57→18:01)
[2018-05-22] MEDS: Metoprolol XL (24 HR) Succ 25 MG TAB.ER.24H PO SCH (09:25)
[2018-05-22] MEDS: Aspirin 81 MG TAB.CHEW PO SCH (09:25)
[2018-05-22] MEDS: Furosemide 40 MG TABLET PO SCH (09:48)
--- NOTE | 2018-05-22 12:22 | Internal Med Progress Note ---
Date of Encounter: 05/22/18 Time of Encounter: 12:20 - Assessment and plan (1) Congestive heart failure Current Visit: Yes Status: Chronic Assessment and plan: Clinically stable. No acute signs or symptoms but she does have persistent edema. We will not increase her diuretic as she is already showing signs of contraction alkalosis. Qualifiers: Heart failure type: combined systolic and diastolic Heart failure chronicity: acute on chronic Qualified Code(s): I50.43 - Acute on chronic combined systolic (congestive) and diastolic (congestive) heart failure (2) Coronary artery disease Current Visit: Yes Status: Chronic Assessment and plan: Clinically stable without acute signs or symptoms. Qualifiers: Coronary Disease-Associated Artery/Lesion type: [place] artery [place] vs. transplanted heart: [place] heart Associated angina: without angina Qualified Code(s): I25.10 - Atherosclerotic heart disease of [place] coronary artery without angina pectoris (3) COPD (chronic obstructive pulmonary disease) Current Visit: Yes Status: Chronic Assessment and plan: Clinically stable, on oxygen therapy. Her lungs sound quite good compared to he r initial examination. Qualifiers: COPD type: COPD with acute exacerbation Qualified Code(s): J44.1 - Chronic obstructive pulmonary disease with (acute) exacerbation (4) GERD (gastroesophageal reflux disease) Current Visit: No Status: Chronic Assessment and plan: No symptoms. Qualifiers: Esophagitis presence: esophagitis presence not specified Qualified Code(s): K21.9 - Gastro-esophageal reflux disease without esophagitis (5) Symptomatic anemia Current Visit: No Status: Acute Assessment and plan: Patient's iron is low. Will prescribe venofer and ask pharmacy to confirm dosing. (6) HLD (hyperlipidemia) Current Visit: No Status: Chronic Assessment and plan: We will continue current regimen. Qualifiers: Hyperlipidemia type: unspecified Qualified Code(s): E78.5 - Hyperlipidemia, unspecified (7) HTN (hypertension) Current Visit: Yes Status: Chronic Assessment and plan: Currently controlled. Qualifiers: Hypertension type: essential hypertension Qualified Code(s): I10 - Essenti al (primary) hypertension (8) Anterior epistaxis Current Visit: Yes Status: Acute Assessment and plan: This appears to be improved. We will ask that she continue on twice a day triple antibiotic ointment oxygen hydration as noted. - Subjective Interval history: Patient is without complaint. She has had nosebleeds, overnight. This is a small amount and seems to have been improved with the triple antibiotic ointment that we applied as well as hydration of her oxygen. Bowels and bladder are working well and she denies other complaints. Patient has no complaint of chest discomfort, dyspnea, orthopnea, palpitations, nausea or vomiting, constipation or diarrhea, other changes in bowel habits, difficulty with urination, rash or itching, or other new complaints, except as mentioned above. Review of systems is otherwise negative. I discussed management of her care with nursing staff. - Constitutional Vitals: Temp Pulse Resp BP Pulse Ox 97.6 F 67 14 114/67 95 05/22/18 08:34 05/22/18 08:34 05/22/18 08:34 05/22/18 08:34 05/22/18 08:34 Exam: Examination: (Except as mentioned above): General: In no apparent distress. Alert and oriented 3. Nondiaphoretic. Head: Atraumatic and normocephalic. Respiratory: No use of accessory muscles. Lungs are clear throughout. Normal airflow. Cardiovascular: Irregularly irregular with rate controlled. Abdomen: Bowel sounds are normal. No hepatosplenomegaly mass or tenderness appreciated. Morbidly obese and therefore difficult to palpate deeply. Patient is examined upright in chair and this also limits exam. Extremities: No cyanosis clubbing or change in edema. She has 1-2+ ankle edema bilaterally. Skin: Warm and non-diaphoretic with no new lesions noted. Internal Medicine: Result - Labs CBC & Chem 7: 05/18/18 16:06 05/18/18 16:06 Consult Discharge Plan - Plan Referrals: Jean Paul Heredia Jr, MD [Primary Care Provider] -
[2018-05-22] MEDS ORDERED: Iron Sucrose Complex 400 MG in 0.9 % Sodium Chloride 250 ML IVPB ONE (12:27)
[2018-05-22] MEDS: Ipratropium/Albuterol Neb 3 ML IH PRN (19:26)
[2018-05-22] MEDS: Melatonin 3 MG TABLET PO PRN (20:36)
--- NOTE | 2018-05-23 08:48 | Internal Med Progress Note ---
Date of Encounter: 05/23/18 Time of Encounter: 08:46 - Assessment and plan (1) Atrial fibrillation Current Visit: Yes Status: Chronic Assessment and plan: Todays exam shows regular pulse . stable rate continue to monitor Qualifiers: Atrial fibrillation type: paroxysmal Qualified Code(s): I48.0 - Paroxysmal atrial fibrillation (2) COPD (chronic obstructive pulmonary disease) Current Visit: Yes Status: Chronic Assessment and plan: Breathing base line . No acute issues noted to be PCO2 slightly high on lasix and CPAP Qualifiers: COPD type: COPD with acute exacerbation Qualified Code(s): J44.1 - Chronic obstructive pulmonary disease with (acute) exacerbation (3) Congestive heart failure Current Visit: Yes Status: Chronic Assessment and plan: On lasix , del etc BP is some what low today , ernestina recheck and give Lasix advised to to elevate feet while sitting in chair . Qualifiers: Heart failure type: combined systolic and diastolic Heart failure chronicity: acute on chronic Qualified Code(s): I50.43 - Acute on chronic combined systolic (congestive) and diastolic (congestive) heart failure (4) HTN (hypertension) Current Visit: Yes Status: Chronic Assessment and plan: She carried hx of HTN however her blood pressure is low today and is usally running on the lower side . On very small dose of DEL and Beta blockers , hold today due to low BP she is asymptomatic , making urine Repeat BP and give lasix as she has CHF followup . Qualifiers: Hypertension type: essential hypertension Qualified Code(s): I10 - Essential (primary) hypertension (5) Anemia Current Visit: Yes Status: Chronic Assessment and plan: last h/h 8 ON Iron IV will followup. stable at the present time . will follow Qualifiers: Anemia type: iron deficiency Iron deficiency anemia type: unspecified iron deficiency Qualified Code(s): D50.9 - Iron deficiency anemia, unspecified - Subjective Interval history: Cross coverage NO acute issues no dizziness sitting and eating ehr breakfast no SOB excpet when she lays flat in bed uses CPAP at night and seems to be tolerating it well . Noted BP systolic to be very low - Constitutional Vitals: Temp Pulse Resp BP Pulse Ox 98.3 F 72 14 87/55 100 05/23/18 07:41 05/23/18 07:41 05/23/18 07:41 05/23/18 07:41 05/23/18 07:41 General appearance: Present: A&O X 3, pleasant, no acute distress, answers questions appropriately - Head Head exam: Present: atraumatic - Eye Eye exam: Present: normal appearance, PERRL. Absent: scleral icterus Pupils: Present: PERRL - Neck Neck exam general surgery: Present: supple. Absent: tenderness, nuchal rigidity - Respiratory Respiratory exam: Present: decreased breath sounds, CTAB. Absent: rhonchi, stridor, wheezes, tachypnea - Cardiovascular Cardiovascular exam: Present: RRR, +S1, +S2 - GI/Abdominal GI/Abdominal exam: Present: normal bowel sounds, soft. Absent: guarding, rigid, no peritoneal signs - Extremities Exam Extremities exam: Present: pedal edema. Absent: mottling, tenderness, warm Additional comments: ++ pitting both sides - Neurological Exam Neurological exam: Present: alert, CN II-XII intact, oriented X3. Absent: no focal deficits, facial droop, speech deficit Internal Medicine: Result - Labs CBC & Chem 7: 05/18/18 16:06 05/18/18 16:06 Consult Discharge Plan - Plan Referrals: Jean Paul Heredia Jr, MD [Primary Care Provider] -
[2018-05-23] MEDS: *HR* Heparin 5,000 UNIT/ML VIAL SQ SCH (08:55)
[2018-05-23] MEDS: Aspirin 81 MG TAB.CHEW PO SCH (08:56)
[2018-05-23] MEDS: Neosporin OINT 1 APPL PACKET TP SCH ×2 (09:01→21:07)
[2018-05-23] MEDS: Furosemide 40 MG TABLET PO SCH ×2 (09:01→15:26)
[2018-05-23] MEDS: Metoprolol XL (24 HR) Succ 25 MG TAB.ER.24H PO SCH (09:01)
[2018-05-23] MEDS: Ipratropium/Albuterol Neb 3 ML IH PRN (10:09)
[2018-05-23] MEDS: Melatonin 3 MG TABLET PO PRN (21:06)
[2018-05-24] MEDS: *HR* Heparin 5,000 UNIT/ML VIAL SQ SCH ×2 (06:04→16:59)
--- NOTE | 2018-05-24 09:15 | Internal Med Progress Note ---
Date of Encounter: 05/24/18 Time of Encounter: 09:13 - Assessment and plan (1) Atrial fibrillation Current Visit: Yes Status: Chronic Assessment and plan: Stable rate continue to monitor Qualifiers: Atrial fibrillation type: paroxysmal Qualified Code(s): I48.0 - Paroxysmal atrial fibrillation (2) COPD (chronic obstructive pulmonary disease) Current Visit: Yes Status: Chronic Assessment and plan: Breathing base line . No acute issues noted to be PCO2 slightly high on lasix and CPAP stable Qualifiers: COPD type: COPD with acute exacerbation Qualified Code(s): J44.1 - Chronic obstructive pulmonary disease with (acute) exacerbation (3) Congestive heart failure Current Visit: Yes Status: Chronic Assessment and plan: stable at the present time due to her low BP other supportive meds can't be given and are at hold lasix only elevate legs . Qualifiers: Heart failure type: combined systolic and diastolic Heart failure chronicity: acute on chronic Qualified Code(s): I50.43 - Acute on chronic combined systolic (congestive) and diastolic (congestive) heart failure (4) HTN (hypertension) Current Visit: Yes Status: Chronic Assessment and plan: BP has been consistently running low other meds are at hold Lasix only as needed when BP is above 95 systolic Qualifiers: Hypertension type: essential hypertension Qualified Code(s): I10 - Essential (primary) hypertension (5) Anemia Current Visit: Yes Status: Chronic Assessment and plan: On iron stable but low Qualifiers: Anemia type: iron deficiency Iron deficiency anemia type: unspecified iron deficiency Qualified Code(s): D50.9 - Iron deficiency anemia, unspecified - Subjective Interval history: Cross coverage NO acute issues no dizziness sitting in chair no dizziness or any other complains - Constitutional Vitals: Temp Pulse Resp BP Pulse Ox 98.1 F 86 20 80/51 96 05/24/18 07:00 05/24/18 07:00 05/24/18 07:00 05/24/18 07:00 05/24/18 07:00 General appearance: Present: A&O X 3, pleasant, no acute distress, answers questions appropriately - Head Head exam: Present: atraumatic - Eye Eye exam: Present: EOMI, PERRL. Absent: scleral icterus Pupils: Present: PERRL - Neck Neck exam general surgery: Present: full ROM, supple. Absent: tenderness, nuchal rigidity - Respiratory Respiratory exam: Present: decreased breath sounds, CTAB. Absent: respiratory distress, rhonchi, stridor, wheezes, tachypnea Additional comments: both side decrease air entry otherwise stable - Cardiovascular Cardiovascular exam: Present: irregular rhythm, +S1, +S2. Absent: JVD, RRR Additional comments: rate stable - GI/Abdominal GI/Abdominal exam: Present: normal bowel sounds, soft. Absent: distended, g uarding, rigid, tenderness - Extremities Exam Extremities exam: Present: pedal edema Additional comments: + pitting both sides - Neurological Exam Neurological exam: Present: CN II-XII intact, oriented X3. Absent: no focal deficits, strengths equal and symetr throughout, pronater drift, facial droop Internal Medicine: Result - Labs CBC & Chem 7: 05/18/18 16:06 05/18/18 16:06 Consult Discharge Plan - Plan Referrals: Jean Paul Heredia Jr, MD [Primary Care Provider] -
[2018-05-24] MEDS: Metoprolol XL (24 HR) Succ 25 MG TAB.ER.24H PO SCH (09:59)
[2018-05-24] MEDS: Aspirin 81 MG TAB.CHEW PO SCH (10:05)
[2018-05-24] MEDS ORDERED: Furosemide 20 MG TABLET PO ONE (10:15)
[2018-05-24] MEDS: Neosporin OINT 1 APPL PACKET TP SCH ×2 (10:19→20:17)
[2018-05-24] MEDS: Furosemide 40 MG TABLET PO SCH ×2 (10:51→16:16)
[2018-05-24] MEDS: Melatonin 3 MG TABLET PO PRN (20:17)
[2018-05-25] MEDS: Acetaminophen 325 MG TABLET PO PRN ×2 (00:05→09:20)
[2018-05-25] MEDS: *HR* Heparin 5,000 UNIT/ML VIAL SQ SCH ×2 (06:21→19:02)
[2018-05-25] MEDS: Aspirin 81 MG TAB.CHEW PO SCH (09:19)
[2018-05-25] MEDS: Metoprolol XL (24 HR) Succ 25 MG TAB.ER.24H PO SCH (09:20)
[2018-05-25] MEDS: Furosemide 40 MG TABLET PO SCH ×2 (09:20→19:02)
[2018-05-25] MEDS: Neosporin OINT 1 APPL PACKET TP SCH ×2 (09:21→21:43)
--- NOTE | 2018-05-25 11:22 | Internal Med Progress Note ---
Addendum entered and electronically signed by Lopez Da Silva MD 05/25/18 11:57: I have personally performed a face to face evaluation on this patient. I have r eviewed and agree with the care plan. History and Exam by me shows: Patient is feeling stronger. She walked up to 150 feet in the hallway. She is still having some dyspnea but feels that she is making progress. She has no new pulmonary symptoms, chest discomfort, etc. Bowels and bladder are functioning well without problems. Social service tells me that she is being evaluated for custodial acceptability. Discussed care with other providers and/or nursing. Patient has no complaint of chest discomfort, dyspnea, orthopnea, palpitations, nausea or vomiting, constipation or diarrhea, other changes in bowel habits, difficulty with urination, rash or itching, or other new complaints, except as mentioned above. Review of systems is otherwise negative. Examination: (Except as mentioned above): General: In no apparent distress. Alert and oriented 3. Nondiaphoretic. Head: Atraumatic and normocephalic. Respiratory: No use of accessory muscles. Lungs are clear throughout. Normal airflow. Cardiovascular: Regular rate and rhythm without murmur appreciated. Abdomen: Bowel sounds are normal. No hepatosplenomegaly mass or tenderness appreciated. Morbidly obese and therefore difficult to palpate deeply. Patient is examined upright in chair and this also limits exam. Extremities: No cyanosis clubbing or change in edema. She has 2+ edema, persistent. Skin: Warm and non-diaphoretic with no new lesions noted. She continues to have borderline hypotension and we will follow. She is receiving iron daily for 2 more days and hopefully she will improve from the standpoint of hemoglobin and this might help her stamina as well as blood pressure. Original Note: Date of Encounter: 05/25/18 Time of Encounter: 11:20 - Assessment and plan (1) Congestive heart failure Current Visit: Yes Status: Chronic Assessment and plan: Controlled with current medication. Monitor for decompensation. Monitor labs. Qualifiers: Heart failure type: combined systolic and diastolic Heart failure chronicity: acute on chronic Qualified Code(s): I50.43 - Acute on chronic combined systolic (congestive) and diastolic (congestive) heart failure (2) Coronary artery disease Current Visit: Yes Status: Chronic Assessment and plan: Stable. Denies chest pain. Continue current medication. Qualifiers: Coronary Disease-Associated Artery/Lesion type: [place] artery [place] vs. transplanted heart: [place] heart Associated angina: without angina Qualified Code(s): I25.10 - Atherosclerotic heart disease of [place] coronary artery without angina pectoris (3) HTN (hypertension) Current Visit: Yes Status: Chronic Assessment and plan: Controlled with current medication. Monitor blood pressure. Qualifiers: Hypertension type: essential hypertension Qualified Code(s): I10 - Essential (primary) hypertension (4) COPD (chronic obstructive pulmonary disease) Current Visit: Yes Status: Chronic Assessment and plan: Continue oxygen per nasal cannula. Maintaining sets greater than 92% at 2 L per nasal cannula. Continue inhaled meds. Stable at this time. BiPAP at bedtime. Qualifiers: COPD type: COPD with acute exacerbation Qualified Code(s): J44.1 - Chronic obstructive pulmonary disease with (acute) exacerbation - Time Spent With Patient 25 - 35 minutes - Subjective Interval history: Sitting in chair, denies increased shortness of breath or chest pain. Denies nausea, vomiting or diarrhea. Denies any other complaints at this time. Wears BiPAP at bedtime. maintaining o2 sats >92% at 2 liters per NC - Constitutional Vitals: Temp Pulse Resp BP Pulse Ox 97.7 F 89 16 99/65 100 05/25/18 06:50 05/25/18 06:50 05/25/18 06:50 05/25/18 06:50 05/25/18 06:50 General appearance: Present: cooperative, A&O X 3, pleasant, no acute distress, answers questions appropriately - Head Head exam: Present: atraumatic, normocephalic - Eye Eye exam: Present: PERRL, conjuntiva pink, sclera anicteric Pupils: Present: PERRL - Neck Neck exam general surgery: Present: supple, trachea midline. Absent: lymphadenopathy - Respiratory Respiratory exam: Present: CTAB. Absent: accessory muscle use, rales, rhonchi, wheezes Additional comments: diminished bases. - Cardiovascular Cardiovascular exam: Present: RRR, +S1, +S2. Absent: diastolic murmur, gallop, rubs, systolic murmur - GI/Abdominal GI/Abdominal exam: Present: normal bowel sounds, soft, no peritoneal signs. Absent: distended, tenderness - Extremities Exam Extremities exam: Present: warm, radial pulses palpable and symmetrical. Absent: calf tenderness, cyanotic, pedal edema Additional comments: 1+ pitting edema bilat LE. - Neurological Exam Neurological exam: Present: CN II-XII intact, oriented X3, no focal deficits. Absent: pronater drift, facial droop, speech deficit - Skin Skin exam: Present: dry, intact Internal Medicine: Result - Labs CBC & Chem 7: 05/18/18 16:06 05/18/18 16:06 Consult Discharge Plan - Plan Referrals: Jean Paul Heredia Jr, MD [Primary Care Provider] -
[2018-05-25] MEDS: Ipratropium/Albuterol Neb 3 ML IH PRN (14:36)
[2018-05-25] MEDS: Melatonin 3 MG TABLET PO PRN (21:43)
[2018-05-26] MEDS: *HR* Heparin 5,000 UNIT/ML VIAL SQ SCH (06:40)
[2018-05-26 07:34] VITALS: BP 95/58
[2018-05-26] MEDS: Aspirin 81 MG TAB.CHEW PO SCH (08:32)
[2018-05-26] MEDS: Furosemide 40 MG TABLET PO SCH (08:33)
[2018-05-26] MEDS: Metoprolol XL (24 HR) Succ 25 MG TAB.ER.24H PO SCH (08:34)
[2018-05-26] MEDS: Neosporin OINT 1 APPL PACKET TP SCH (08:34)
--- NOTE | 2018-05-26 11:42 | Physician Discharge Referral ---
Addendum entered and electronically signed by Lopez Da Silva MD 05/26/18 13:55: Original Note: ExtendedCare Referral Info Transfer To: [facility] Provider in Charge after Transfer: PCP Institutional Level of Care: Skilled - Diagnosis (1) Congestive heart failure Priority: Primary Status: Chronic (2) Coronary artery disease Priority: Secondary Status: Chronic (3) HTN (hypertension) Priority: Secondary Status: Chronic (4) COPD (chronic obstructive pulmonary disease) Priority: Primary Status: Chronic Prognosis: Fair Aware of Diagnosis: Patient - Transfer Medications Home Medications: Albuterol Sulfate [Albuterol Inhaler] 2 puff IH Q4HR PRN #1 hfa.aer.ad 03/25/18 [Rx] Aspirin 81 mg PO DAILY #30 tab.chew 03/25/18 [Rx] Atorvastatin [Lipitor] 10 mg PO DAILY #30 tablet 03/25/18 [Rx] Pantoprazole Sodium [Protonix] 40 mg PO DAILY #30 tablet.dr 03/25/18 [Rx] Psyllium Husk [Daily Fiber] 0.52 gm PO DAILY 05/03/18 [History] Citalopram Hydrobromide [Citalopram HBr] 20 mg PO DAILY 05/04/18 [History] Clopidogrel [Plavix] 75 mg PO DAILY 05/04/18 [History] Furosemide [Lasix] 40 mg PO DAILY 05/04/18 [History] Lisinopril 2.5 mg PO DAILY 05/04/18 [History] Metoprolol Succinate [Toprol Xl] 12.5 mg PO DAILY 05/04/18 [History] Docusate Sodium [Colace] 100 mg PO BID 05/14/18 [History] Ferrous Sulfate 325 mg PO DAILY@0800 30 Days #30 tablet 05/14/18 [Rx] Ipratropium/Albuterol Sulfate [Iprat-Albut 0.5-3(2.5) mg/3 ml] 3 ml IH QID PRN 05/14/18 [History] Allergies/Adverse Reactions: Allergy/AdvReac Type Severity Reaction Status Date / Time Neomycin Allergy Blister Verified 12/29/17 13:47 Penicillins Allergy Blister Verified 12/29/17 13:47 vancomycin Allergy Blister Verified 05/03/18 16:08 - Respiratory Orders Oxygen / L per min Smoking Cessation: Smoking cessation has been advised. For more information, call the [place] Tobacco Quit Line at 1-058-OEAV-NOW. - Advance Directives Code Status: Full Code - Mobility Orders Chair, Ambulate - Rehabiliation Orders Rehab Potential: Fair Rehab Orders: Evaluation for Physical Therapy, Evaluation for Occupational Therapy - Diet Orders Cardiac CERTIFICATION: I certify that the transfer of the above named patient to an Extended Care Facility is necessary for the continuing treatment of the diagnosis listed. The above information is true and accurate reflection of patient's current condition. Confidential - Redisclosure prohibited without a patient's written consent.
--- NOTE | 2018-05-26 11:49 | Discharge Summary ---
Addendum entered and electronically signed by Lopez Da Silva MD 05/26/18 13:55: Because of other patient responsibilities, I wasn't able to see patient prior to discaerge. Original Note: - NOTES TO OUTPATIENT PROVIDER Notes to Outpatient Provider: repeat iron studies in 1 week, had iron infusions. Date of Encounter: 05/26/18 Time of Encounter: 11:42 - Discharge Diagnosis (1) Congestive heart failure Priority: Primary Status: Chronic Comments: improving, BNP 709. continue current meds. chronic pedal edema. Qualifiers: Heart failure type: combined systolic and diastolic Heart failure chronicity: acute on chronic Qualified Code(s): I50.43 - Acute on chronic combined systolic (congestive) and diastolic (congestive) heart failure (2) Coronary artery disease Priority: Secondary Status: Chronic Comments: Stable. Denies chest pain. Continue current medication. Qualifiers: Coronary Disease-Associated Artery/Lesion type: [place] artery [place] vs. transplanted heart: [place] heart Associated angina: without angina Qualified Code(s): I25.10 - Atherosclerotic heart disease of [place] coronary artery without angina pectoris (3) HTN (hypertension) Priority: Secondary Status: Chronic Comments: Controlled with current medication. Monitor blood pressure. Qualifiers: Hypertension type: essential hypertension Qualified Code(s): I10 - Essential (primary) hypertension (4) COPD (chronic obstructive pulmonary disease) Priority: Secondary Status: Chronic Comments: Controlled with oxygen per nasal cannula and inhaled meds. Qualifiers: COPD type: COPD with acute exacerbation Qualified Code(s): J44.1 - Chronic obstructive pulmonary disease with (acute) exacerbation Hospital course: Ms. Chirinos is a 67 year old female discharging to [facility] after admission for rehab for deconditioning from COPD and CHF.. Patient to continue PT and OT. Patient denies shortness of breath or chest pain. Continues oxygen per nasal cannula and maintaining oxygen saturations greater than 92%.. Has been ambulating hundred and 50 feet with Walker with therapy. Denies fever, chills, nausea vomiting or diarrhea. Discharge discussed with: patient, nurse, social work - Time Spent with Patient Total time spent providing and/or coordinating discharge services: Time spent: Less than 30 minutes - Discharge Medications Prescriptions: No Action Albuterol Sulfate [Albuterol Inhaler] 2 puff IH Q4HR PRN #1 hfa.aer.ad PRN Reason: Dyspnea Aspirin 81 mg PO DAILY #30 tab.chew Atorvastatin [Lipitor] 10 mg PO DAILY #30 tablet Pantoprazole Sodium [Protonix] 40 mg PO DAILY #30 tablet.dr Psyllium Husk [Daily Fiber] 0.52 gm PO DAILY Metoprolol Succinate [Toprol Xl] 12.5 mg PO DAILY Lisinopril 2.5 mg PO DAILY Furosemide [Lasix] 40 mg PO DAILY Clopidogrel [Plavix] 75 mg PO DAILY Citalopram Hydrobromide [Citalopram HBr] 20 mg PO DAILY Ferrous Sulfate 325 mg PO DAILY@0800 30 Days #30 tablet Ipratropium/Albuterol Sulfate [Iprat-Albut 0.5-3(2.5) mg/3 ml] 3 ml IH QID PRN PRN Reason: Shortness Of Breath Docusate Sodium [Colace] 100 mg PO BID Home Medications: Albuterol Sulfate [Albuterol Inhaler] 2 puff IH Q4HR PRN #1 hfa.aer.ad 03/25/18 [Rx] Aspirin 81 mg PO DAILY #30 tab.chew 03/25/18 [Rx] Atorvastatin [Lipitor] 10 mg PO DAILY #30 tablet 03/25/18 [Rx] Pantoprazole Sodium [Protonix] 40 mg PO DAILY #30 tablet. 03/25/18 [Rx] Psyllium Husk [Daily Fiber] 0.52 gm PO DAILY 05/03/18 [History] Citalopram Hydrobromide [Citalopram HBr] 20 mg PO DAILY 05/04/18 [History] Clopidogrel [Plavix] 75 mg PO DAILY 05/04/18 [History] Furosemide [Lasix] 40 mg PO DAILY 05/04/18 [History] Lisinopril 2.5 mg PO DAILY 05/04/18 [History] Metoprolol Succinate [Toprol Xl] 12.5 mg PO DAILY 05/04/18 [History] Docusate Sodium [Colace] 100 mg PO BID 05/14/18 [History] Ferrous Sulfate 325 mg PO DAILY@0800 30 Days #30 tablet 05/14/18 [Rx] Ipratropium/Albuterol Sulfate [Iprat-Albut 0.5-3(2.5) mg/3 ml] 3 ml IH QID PRN 05/14/18 [History] Acetaminophen [Tylenol] 650 mg PO Q4HR PRN tablet 05/26/18 [Rx] Heparin 5,000 unit SQ Q12HCO vial 05/26/18 [Rx] Mag Hydrox/Al Hydrox/Simeth [Maalox] 30 ml PO Q4H PRN udc 05/26/18 [Rx] Melatonin 6 mg PO HS PRN tablet 05/26/18 [Rx] Nawaf/Poly/Radha OINT [Triple Antibiotic Ointment] 1 appl TP BID packet 05/26/18 [Rx] Polyethylene Glycol 3350 [MiraLAX] 17 gm PO DAILY PRN powd.pack 05/26/18 [Rx] Allergies/Adverse Reactions: Allergy/AdvReac Type Severity Reaction Status Date / Time Neomycin Allergy Blister Verified 12/29/17 13:47 Penicillins Allergy Blister Verified 12/29/17 13:47 vancomycin Allergy Blister Verified 05/03/18 16:08 Date of admission: 05/14/18 19:45 Primary care physician: Jean Paul Heredia Jr, MD Consults: 05/14/18 21:04 Consult to Occupational Therapy [CONS] Routine Comment: Eval and Treat Reason for Consult: Eval and Treat Does patient have active BEDREST order?: No Is patient medically & hemodynamically stable?: Yes Patient assessed for mobility or mobilized this visit?: No Consult to Physical Therapy [CONS] Routine Comment: Eval and Treat Reason for Consult: Eval and Treat Does patient have active BEDREST order?: No Is patient medically & hemodynamically stable?: Yes Patient assessed for mobility or mobilized this visit?: No Consult to Recreational Therapy [CONS] Routine Comment: Consult to [employer] Log[employer] Analyst [CONS] Routine Reason for SW Consult: Discharge Planning 05/14/18 21:07 Consult to Recreational Therapy [CONS] Routine Comment: 05/14/18 21:09 Consult to Physical Medicine/Rehab [CONS] Routine Reason for Consult: Please evaluate and manage therapies' guidelines and recommend pathway to reconditioning. Call Completed: No Discharging clinician: Lopez Da Silva Anticipated date of discharge: 05/26/18 - Constitutional Vitals: Temp Pulse Resp BP Pulse Ox 97.6 F 90 15 95/58 96 05/26/18 07:33 05/26/18 07:33 05/26/18 07:33 05/26/18 07:33 05/26/18 07:33 General appearance: Present: cooperative, A&O X 3, pleasant, no acute distress, answers questions appropriately - Head Head exam: Present: atraumatic, normocephalic - Eye Eye exam: Present: PERRL, conjuntiva pink, sclera anicteric Pupils: Present: PERRL - Neck Neck exam general surgery: Present: supple, trachea midline. Absent: lymphadenopathy - Respiratory Respiratory exam: Present: CTAB. Absent: accessory muscle use, rales, rhonchi, wheezes Additional comments: Diminished and bilateral basis - Cardiovascular Cardiovascular exam: Present: RRR, +S1, +S2. Absent: diastolic murmur, gallop, rubs, systolic murmur - GI/Abdominal GI/Abdominal exam: Present: normal bowel sounds, soft, no peritoneal signs. A bsent: distended, tenderness - Extremities Exam Extremities exam: Present: pedal edema, warm, radial pulses palpable and symmetrical. Absent: calf tenderness, cyanotic Additional comments: 1+ pitting edema bilateral lower extremities. - Neurological Exam Neurological exam: Present: CN II-XII intact, oriented X3, no focal deficits. Absent: pronater drift, facial droop, speech deficit - Skin Skin exam: Present: dry, intact - Patient Status Disposition: Transfer SNF Condition: Good Functional capacity at discharge: uses cane/walker Overall status at discharge: patient is progressing back to baseline - Discharge Instructions Follow Up With: Jean Paul Heredia Jr, MD [Primary Care Provider] - - Diet and Activity Activity: as per physical therapy Diet: low fat, low cholesterol
[2018-05-26] MEDS: Ipratropium/Albuterol Neb 3 ML IH PRN (12:05)
== END 2018-05-26 13:30 | DRG 292 ==
LOC: INPGRE 05-14 19:45